=== PATIENT | male | born 1960 ===

== ENCOUNTER 2019-01-23 01:49 | Emergency (ER) | payer MEDICAID ==
[2019-01-23 02:16] VITALS: TEMP 98.6; O2SAT 98
[2019-01-23] MEDS ORDERED: Oxycodone/Acetaminophen 5/325 mg Tab PO STA (02:31)
[2019-01-23] MEDS ORDERED: Oxycodone/Acetaminophen 5/325 mg Tab ONE (02:52)
--- NOTE | 2019-01-23 02:52 | ED PDOC ---
HPI: Dental Pain/Injury Time Seen by Provider: 01/23/19 02:12 Chief Complaint (Nursing): Dental Pain Chief Complaint (Provider): Right lower dental pain History Per: Patient History/Exam Limitations: no limitations Onset/Duration Of Symptoms: Days (2) Current Symptoms Are (Timing): Still Present Additional Complaint(s): 58 yo male with HTN presents for evaluation of right lower dental pain for 2 days. Pt states he called his dentist and has appointment for 01/24/19. States he cannot sleep due to the pain. PT denies fever/chills. Past Medical History Reviewed: Historical Data, Nursing Documentation, Vital Signs Vital Signs: Last Vital Signs Temp 98.6 F 01/23/19 02:13 Pulse 90 01/23/19 02:13 Resp 20 01/23/19 02:13 BP 154/83 H 01/23/19 02:13 Pulse Ox 98 01/23/19 02:13 Primary Care Provider: FAMILY PROVIDER,NO - Medical History PMH: HTN - Surgical History Surgical History: No Surg Hx - Family History Family History: States: No Known Family Hx - Living Arrangements Living Arrangements: With Family - Social History Current smoker - smoking cessation education provided: No - Home Medications Home Medications: Ambulatory Orders Medication Instructions Recorded Amoxicillin/Clavulanate [Augmentin 1 tab PO BID #20 tab 01/23/19 875 MG-125 MG] oxyCODONE/Acetaminophen [Percocet 1 ea PO Q6H PRN #5 tab 01/23/19 5/325 mg Tab] - Allergies Allergies/Adverse Reactions: Allergies Allergy/AdvReac Type Severity Reaction Status Date / Time No Known Allergies Allergy Verified 01/23/19 02:16 Review of Systems ROS Statement: Except As Marked, All Systems Reviewed And Found Negative Constitutional: Negative for: Fever, Chills ENT: Positive for: Other. Negative for: Ear Pain, Ear Discharge Cardiovascular: Negative for: Chest Pain, Palpitations Neurological: Negative for: Weakness, Numbness Physical Exam - Reviewed Nursing Documentation Reviewed: Yes Vital Signs Reviewed: Yes - Physical Exam Appears: Positive for: Well, Non-toxic, No Acute Distress Head Exam: Positive for: ATRAUMATIC, NORMAL INSPECTION, NORMOCEPHALIC Skin: Positive for: Normal Color, Warm, DRY Eye Exam: Positive for: Normal appearance ENT: Positive for: Normal ENT Inspection, Other ((+) dental decay right lower, no drainage, no abscess formation) Neck: Positive for: Normal, Painless ROM Cardiovascular/Chest: Positive for: Regular Rate, Rhythm Respiratory: Positive for: Normal Breath Sounds. Negative for: Accessory Muscle Use, Respiratory Distress Back: Positive for: Normal Inspection Extremity: Positive for: Normal ROM Neurological/Psych: Positive for: Awake, Alert, Normal Tone - ECG O2 Sat by Pulse Oximetry: 98 Pulse Ox Interpretation: Normal Disposition - Clinical Impression Clinical Impression: Dental decay - Disposition Referrals: Tiffany Cooley MD [Primary Care Provider] - Disposition: Routine/Home Disposition Time: 02:53 Condition: GOOD Prescriptions: Amoxicillin/Clavulanate [Augmentin 875 MG-125 MG] 1 tab PO BID #20 tab oxyCODONE/Acetaminophen [Percocet 5/325 mg Tab] 1 ea PO Q6H PRN #5 tab PRN Reason: Pain, Severe (8-10) Instructions: Tooth Decay, Adult Print Language: INDONESIAN
[2019-01-23 06:08] VITALS: BP 145/80; PULSE 82; RESP 19
== END 2019-01-23 03:22 | disposition home or self-care (01) ==
LOC: H.ER 01:49
DX: K02.9 Dental caries, unspecified (principal)